=== PATIENT | female | born 1960 | race Caucasian/White ===

== ENCOUNTER 2024-04-14 09:29 | Emergency (ER) | payer OTHER ==
[2024-04-14] MEDS ORDERED: Sodium Chloride 0.9% 10 ML Syringe FLUSH PRN (09:37)
[2024-04-14] MEDS: Ondansetron 4 MG/2 ML SDV IVPUSH ONE (09:38)
[2024-04-14 09:41] LABS: BASOPHILS ABSOLUTE AUTO 0.03 10^3/uL (0.00-0.10); BASOPHILS PERCENT AUTO 0.4 % (0.0-1.0); EOSINOPHILS ABSOLUTE AUTO 0.43 10^3/uL (0.10-0.30); EOSINOPHILS PERCENT AUTO 5.2 % (1.0-3.0); HEMATOCRIT 44.8 % (37.0-47.0); HEMOGLOBIN 14.4 g/dL (12.0-16.0); IMMATURE GRAN ABSOLUTE AUTO 0.02 10^3/uL (0.00-0.04); IMMATURE GRAN PERCENT AUTO 0.2 % (0.0-0.4); LYMPHOCYTES ABSOLUTE AUTO 1.79 10^3/uL (1.00-4.00); LYMPHOCYTES PERCENT AUTO 21.7 % (20.0-40.0); MEAN CORPUSCULAR HEMOGLOBIN 29.1 pg (27.0-31.0); MEAN CORPUSCULAR HGB CONC 32.1 g/dL (32.0-36.0); MEAN CORPUSCULAR VOLUME 90.5 fL (82.0-92.0); MEAN PLATELET VOLUME 10.6 fL (7.4-10.4); MONOCYTES ABSOLUTE AUTO 0.27 10^3/uL (0.10-0.80); MONOCYTES PERCENT AUTO 3.3 % (2.0-8.0); NEUTROPHILS PERCENT AUTO 69.2 % (50.0-70.0); PLATELET COUNT,PLT 314 10^3/uL (150-400); RED BLOOD CELL COUNT 4.95 10^6/uL (3.80-5.50); RED CELL DISTRIBUTION WIDTH 15.3 % (11.5-14.5); WHITE BLOOD CELL COUNT,WBC 8.24 10^3/uL (5.00-10.00)
[2024-04-14 09:52] LABS: ALANINE AMINOTRANSFERASE,ALT 21 U/L (14-63); ALBUMIN 3.82 g/dL (3.40-5.00); ALKALINE PHOSPHATASE 200 U/L (46-116); ANION GAP 21.3 mmol/L (5-15); ASPARTATE AMNIOTRANSFERASE,AST 23 U/L (15-37); BILIRUBIN TOTAL 0.7 mg/dL (0.2-1.0); BLOOD UREA NITROGEN,BUN 7 mg/dL (7-18); CALCIUM 10.2 mg/dL (8.7-10.3); CHLORIDE,CL 103 mmol/L (98-107); GLUCOSE RANDOM 147 mg/dL (70-140); POTASSIUM,K 3.3 mmol/L (3.5-5.1); SODIUM,NA 147 mmol/L (136-145)
[2024-04-14 09:53] LABS: ESTIMATED GFR 83 mL/min (>=60)
[2024-04-14 10:07] LABS: INR 0.8 (0.9-1.1); PROTHROMBIN TIME 9.4 SEC (8.9-13.4)
[2024-04-14 10:22] LABS: PTT,PARTIAL THROMBOPLSTIN TIME 25.9
[2024-04-14] MEDS: Ondansetron 4 MG/2 ML SDV ONE (11:20)
[2024-04-14] MEDS: levETIRAcetam in NaCl (iso-os) 400 ML ONE (11:20)
== END 2024-04-14 10:15 ==
LOC: KA.ED 09:29
DX: I63.9 Cerebral infarction, unspecified (principal); I99.8 Other disorder of circulatory system
CPT/HCPCS: 36415; 70450; 80053; 84484; 85025; 85610; 85730; 96374; 99285-25; J2405; Q3014